=== PATIENT | female | born 2005 | race Two or more races ===

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

== ENCOUNTER 2023-09-16 15:58 | Emergency (ER) | payer OTHER ==
[~2023-09-16] VITALS: Ht 167.6 cm; Wt 140.6 kg
[2023-09-16 16:15] VITALS: TEMP 98.6
[2023-09-16] MEDS ORDERED: ONDANSETRON HCL/PF 4 MG/2 ML VIAL ONE (17:01)
[2023-09-16] MEDS ORDERED: FAMOTIDINE/PF INJ 20 MG/2 ML VIAL IV ONE (17:01)
[2023-09-16] MEDS: FAMOTIDINE/PF INJ 20 MG/2 ML VIAL IV ONE (17:06)
[2023-09-16] MEDS: IV NS 0.9% 1,000 ML BAG IV ONE (17:06)
[2023-09-16] MEDS: ONDANSETRON HCL/PF 4 MG/2 ML VIAL IVP ONE (17:06)
[2023-09-16 17:29] LABS: BASOPHILS % (AUTO) 0.2 % (0.0-2.0); EOSINOPHILS % (AUTO) 0.5 % (0.0-6.0); HEMATOCRIT 40 % (33-45); HEMOGLOBIN 13.5 g/dL (11.5-14.8); LYMPHOCYTES # (AUTO) 0.7 K/uL (0.8-4.8); LYMPHOCYTES % (AUTO) 9.5 % (20.0-44.0); MEAN CORPUSCULAR HEMOGLOBIN 30 PG (26.0-33.0); MEAN CORPUSCULAR HGB CONC 34 g/dl (31.0-36.0); MEAN CORPUSCULAR VOLUME 87 fL (82-100); MONOCYTES # (AUTO) 0.5 K/uL (0.1-1.30); MONOCYTES % (AUTO) 6.4 % (2.0-12.0); NEUTROPHILS # (AUTO) 6.3 K/uL (1.8-8.9); NEUTROPHILS % (AUTO) 83.4 % (43.0-81.0); PLATELET COUNT (AUTO) 264 K/uL (150-450); RED BLOOD CELL COUNT(AUTO) 4.54 MIL/uL (4.0-5.2); RED CELL DISTRIBUTION WIDTH 13.1 % (11.5-15.0); WHITE BLOOD COUNT (AUTO) 7.6 K/uL (4.3-11.0)
[2023-09-16 17:37] LABS: CALCIUM, SERUM 8.6 mg/dL (8.5-10.1); CREATININE 0.5 mg/dL (0.6-1.3); POTASSIUM 3.5 mmol/L (3.5-5.1)
[2023-09-16 17:44] LABS: ALBUMIN 3.3 g/dL (3.4-5.0); BILIRUBIN,DIRECT 0.1 mg/dL (0.0-0.2); BILIRUBIN,TOTAL 0.4 mg/dL (0.2-1.0); TOTAL PROTEIN, SERUM 7.5 g/dL (6.4-8.2)
[2023-09-16 19:13] LABS: APPEARANCE,URINE SLIGHTLY CLOUDY (CLEAR); BILIRUBIN,URINE NEGATIVE (NEGATIVE); BLOOD, URINE 3+ Ery/uL (NEGATIVE); COLOR,URINE YELLOW (YELLOW); KETONES,URINE TRACE mg/dL (NEGATIVE); LEUKOCYTE ESTERASE ,URINE 1+ (NEGATIVE); NITRITE, URINE NEGATIVE (NEGATIVE); PREGNANCY TEST URINE QUAL NEGATIVE (NEGATIVE); PROTEIN,URINE 1+ mg/dl (NEGATIVE); UGLUCOSE NEGATIVE (NEGATIVE); UROBILINOGEN,URINE 0.2 EU/dL (0.2)
[2023-09-16 19:21] LABS: ADD URINE CULTURE YES; BACTERIA,URINE 2+ /HPF (None Seen); MUCUS,URINE Few /LPF (None Seen); RBC,URINE 51-80 /HPF (0-2)
[2023-09-16] MEDS ORDERED: ONDA4TAB11 PO (21:58)
[2023-09-16] MEDS ORDERED: NITR100C6 PO (21:58)
[2023-09-16] MEDS ORDERED: ONDANSETRON 4 MG TAB.RAPDIS ONE (22:01)
[2023-09-16] MEDS: ONDANSETRON 4 MG TAB.RAPDIS SL ONE (22:07)
[2023-09-16 22:08] VITALS: BP 136/79; O2SAT 100
== END 2023-09-16 22:08 | disposition home or self-care (01) ==
LOC: ER 16:08
DX: N39.0 Urinary tract infection, site not specified (principal); N83.209 Unspecified ovarian cyst, unspecified side; R10.13 Epigastric pain; R11.2 Nausea with vomiting, unspecified
CPT/HCPCS: 99285; 74176; 96374; 96361; 96375; 85025; 80048; 87086; 83690; 80076; 84703; 81001; 36415; J3490; J2405; J7030; Q0162

== ENCOUNTER 2024-04-15 10:30 | Emergency (ER) | payer OTHER ==
[~2024-04-15] VITALS: Ht 170.2 cm; Wt 127.0 kg
[2024-04-15 10:30] VITALS: BP 105/56; TEMP 98.4
[~2024-04-15 10:30] MED LIST: NITR100C6 PO; ONDA4TAB11 PO
[2024-04-15 11:18] VITALS: O2SAT 100
== END 2024-04-15 11:20 | disposition home or self-care (01) ==
LOC: ER 10:33
DX: T81.31XA Disruption of external operation (surgical) wound, not elsewhere classified, initial encounter (principal); Z98.890 Other specified postprocedural states; Y84.8 Other medical procedures as the cause of abnormal reaction of the patient, or of later complication, without mention of misadventure at the time of the procedure; Y92.89 Other specified places as the place of occurrence of the external cause

== ENCOUNTER 2024-05-24 11:42 | Emergency (ER) | payer OTHER ==
[~2024-05-24] VITALS: Ht 170.2 cm; Wt 124.7 kg
[2024-05-24] MEDS ORDERED: AMOXICILLIN TRIHYDRATE 250 MG CAPSULE ONE (12:49)
[2024-05-24] MEDS ORDERED: IBUPROFEN 600 MG TABLET ONE (12:50)
[2024-05-24] MEDS ORDERED: AMOX500C2 PO (12:52)
[2024-05-24] MEDS ORDERED: POLY15DR31 LEFTEYE (12:52)
[2024-05-24] MEDS ORDERED: PRED20TA PO (12:52)
[2024-05-24] MEDS: IBUPROFEN 600 MG TABLET PO ONE (12:52)
[2024-05-24] MEDS: AMOXICILLIN TRIHYDRATE 500 MG CAPSULE PO ONE (12:52)
[2024-05-24 13:38] VITALS: BP 116/84; TEMP 98; O2SAT 100
== END 2024-05-24 13:39 | disposition home or self-care (01) ==
LOC: ER 11:45
DX: H66.92 Otitis media, unspecified, left ear (principal); Z98.890 Other specified postprocedural states; Z79.899 Other long term (current) drug therapy

== ENCOUNTER 2024-05-31 19:55 | Emergency (ER) | payer OTHER ==
[~2024-05-31] VITALS: Ht 170.2 cm; Wt 124.7 kg
[~2024-05-31 19:55] MED LIST changes: +AMOX500C2 PO; +POLY15DR31 LEFTEYE; +PRED20TA PO
[2024-05-31 20:49] VITALS: BP 123/62; TEMP 98.1; O2SAT 98
[2024-05-31] MEDS ORDERED: IBUP-1490 PO (20:56)
[2024-05-31] MEDS ORDERED: IBUPROFEN 600 MG TABLET ONE (20:56)
[2024-05-31] MEDS: IBUPROFEN 600 MG TABLET PO ONE (20:58)
== END 2024-05-31 22:04 | disposition home or self-care (01) ==
LOC: ER 19:59
DX: G51.0 Bell's palsy (principal); R51.9 Headache, unspecified; Z98.890 Other specified postprocedural states; Z79.52 Long term (current) use of systemic steroids

== ENCOUNTER 2024-11-01 11:57 | Emergency (ER) | payer OTHER ==
[~2024-11-01] VITALS: Ht 170.2 cm; Wt 124.7 kg
[~2024-11-01 11:57] MED LIST changes: +IBUP-1490 PO
[2024-11-01 12:47] LABS: BASOPHILS # (AUTO) 0.1 K/uL (0.0-0.2); BASOPHILS % (AUTO) 0.4 % (0.0-2.0); EOSINOPHILS # (AUTO) 0.1 K/uL (0.0-0.7); EOSINOPHILS % (AUTO) 0.5 % (0.0-6.0); HEMATOCRIT 44 % (33-45); HEMOGLOBIN 14.9 g/dL (11.5-14.8); LYMPHOCYTES # (AUTO) 1.4 K/uL (0.8-4.8); LYMPHOCYTES % (AUTO) 9.5 % (20.0-44.0); MEAN CORPUSCULAR HEMOGLOBIN 29 PG (26.0-33.0); MEAN CORPUSCULAR HGB CONC 34 g/dl (31.0-36.0); MEAN CORPUSCULAR VOLUME 87 fL (82-100); MONOCYTES # (AUTO) 1.1 K/uL (0.1-1.30); MONOCYTES % (AUTO) 7.6 % (2.0-12.0); NEUTROPHILS # (AUTO) 11.9 K/uL (1.8-8.9); PLATELET COUNT (AUTO) 325 K/uL (150-450); WHITE BLOOD COUNT (AUTO) 14.5 K/uL (4.3-11.0)
[2024-11-01] MEDS: IV NS 0.9% 1,000 ML BAG IV ONE (12:52)
[2024-11-01] MEDS: PIPERACILLIN /TAZOBACTAM 3.375 G in IV D5W 50 ML IV ONE (13:10)
[2024-11-01 13:13] LABS: CALCIUM, SERUM 9.9 mg/dL (8.5-10.1); CREATININE 0.6 mg/dL (0.6-1.3); INR 1.01 (0.91-1.10); PARTIAL THROMBOPLASTIN TIME 28.1 SEC (24.3-34.3); POTASSIUM 4.1 mmol/L (3.5-5.1); PROTHROMBIN TIME 10.7 SECS (9.2-11.1)
[2024-11-01] MEDS ORDERED: IOHEXOL-300 100 ML VIAL IV ONE (13:40)
[2024-11-01] MEDS ORDERED: IV NS 0.9% 250 ML IV ONE (13:40)
[2024-11-01] MEDS ORDERED: dexaMETHasone SOD PHOSPHATE 1 ML ONE (13:47)
[2024-11-01] MEDS ORDERED: KETOROLAC TROMETHAMINE 15 MG/ML VIAL ONE (13:48)
[2024-11-01] MEDS: KETOROLAC TROMETHAMINE 15 MG/ML VIAL IV ONE (13:53)
[2024-11-01] MEDS: dexaMETHasone SOD PHOSPHATE 10 MG/ML VIAL IV ONE (13:53)
[2024-11-01] MEDS ORDERED: IBUP-1955 PO (14:06)
[2024-11-01] MEDS ORDERED: CETI-355 PO (14:06)
[2024-11-01] MEDS ORDERED: BENZ-38 PO (14:06)
[2024-11-01] MEDS ORDERED: CLIN300C12 PO (15:41)
[2024-11-01 16:53] VITALS: BP 120/76; TEMP 99.7; O2SAT 98
== END 2024-11-01 16:00 | disposition home or self-care (01) ==
LOC: ER 12:18
DX: J36 Peritonsillar abscess (principal); R10.2 Pelvic and perineal pain; Z98.890 Other specified postprocedural states; Z86.2 Personal history of diseases of the blood and blood-forming organs and certain disorders involving the immune mechanism
CPT/HCPCS: 99285; 96365; 70491; 96375; 85025; 80048; 84703; 36415; 85730; 84702; J1885; J1100; J2543; J7060; J7030; J7050; Q9967

== ENCOUNTER → 2024-12-22 | Emergency (ER) | payer OTHER ==
[~2024-12-22] VITALS: Ht 170.2 cm; Wt 124.7 kg
[~2024-12-22] MED LIST changes: +AMOX-430 PO; -AMOX500C2 PO; +BENZ-38 PO; +CEFTRIAXONE 1GM BAG (ER ONLY) 50 ML IV ONE; +CETI-355 PO; +CLIN300C12 PO; -IBUP-1490 PO; +IBUP-1955 PO; +IOHEXOL-300 100 ML VIAL IV ONE; +IV NS 0.9% 250 ML IV ONE; -NITR100C6 PO; -ONDA4TAB11 PO; -POLY15DR31 LEFTEYE; +dexaMETHasone SOD PHOSPHATE 1 ML ONE
[2024-12-22] MEDS: IV NS 0.9% 1,000 ML BAG IV ONE ×2 (15:00→15:04)
[2024-12-22] MEDS: dexaMETHasone SOD PHOSPHATE 10 MG/ML VIAL IV ONE (15:04)
[2024-12-22] MEDS: CEFTRIAXONE 1GM BAG (ER ONLY) 1 GM/50 ML PIGGYBACK IV ONE (15:04)
[2024-12-22 15:05] LABS: BASOPHILS # (AUTO) 0.1 K/uL (0.0-0.2); BASOPHILS % (AUTO) 0.5 % (0.0-2.0); EOSINOPHILS # (AUTO) 0.1 K/uL (0.0-0.7); EOSINOPHILS % (AUTO) 1.2 % (0.0-6.0); HEMATOCRIT 39 % (33-45); HEMOGLOBIN 12.9 g/dL (11.5-14.8); LYMPHOCYTES % (AUTO) 15.5 % (20.0-44.0); MEAN CORPUSCULAR HEMOGLOBIN 29 PG (26.0-33.0); MEAN CORPUSCULAR HGB CONC 34 g/dl (31.0-36.0); MEAN CORPUSCULAR VOLUME 86 fL (82-100); MONOCYTES # (AUTO) 0.8 K/uL (0.1-1.30); MONOCYTES % (AUTO) 6.3 % (2.0-12.0); NEUTROPHILS # (AUTO) 9.8 K/uL (1.8-8.9); NEUTROPHILS % (AUTO) 76.5 % (43.0-81.0); PLATELET COUNT (AUTO) 299 K/uL (150-450); RED BLOOD CELL COUNT(AUTO) 4.47 MIL/uL (4.0-5.2); RED CELL DISTRIBUTION WIDTH 13.1 % (11.5-15.0); WHITE BLOOD COUNT (AUTO) 12.8 K/uL (4.3-11.0)
[2024-12-22 15:26] LABS: INR 0.99 (0.91-1.10); PARTIAL THROMBOPLASTIN TIME 27.3 SEC (24.3-34.3); PROTHROMBIN TIME 10.5 SECS (9.2-11.1)
[2024-12-22] MEDS: AZITHROMYCIN 500 MG in IV D5W 250 ML IV ONE (15:28)
[2024-12-22 15:29] LABS: ALBUMIN 3.6 g/dL (3.4-5.0); BILIRUBIN,DIRECT 0.1 mg/dL (0.0-0.2); BILIRUBIN,TOTAL 0.5 mg/dL (0.2-1.0); CALCIUM, SERUM 8.9 mg/dL (8.5-10.1); CREATININE 0.6 mg/dL (0.6-1.3); POTASSIUM 4.7 mmol/L (3.5-5.1); TOTAL PROTEIN, SERUM 8.1 g/dL (6.4-8.2)
[2024-12-22 15:33] LABS: LACTIC ACID 0.8 mmol/L (0.4-2.0)
[2024-12-22 18:19] VITALS: BP 108/66; TEMP 98.8; O2SAT 98
== END | disposition home or self-care (01) ==
LOC: ER 14:16
DX: J36 Peritonsillar abscess (principal); R06.02 Shortness of breath; Z98.890 Other specified postprocedural states; Z91.013 Allergy to seafood
CPT/HCPCS: 99285; 96365; 70491; 96375; 96368; 93005; 84145; 85025; 80048; 87040 ×2; 83605; 80076; 84703; 36415; 85730; J1100; J7050; J0696; Q9967